=== PATIENT | male | born 1955 | race Caucasian/White ===

== ENCOUNTER → 2017-07-30 | Outpatient (CLI) | payer BC ==
[2017-07-30 21:10] LABS: Basophils % (A) 0 %; CH 32.6; Eosinophils # (A) 0.2 k/uL (0-0.7); Eosinophils % (A) 2 %; HCT 52.6 % (39.0-53.0); HDW 2.71; HGB 17.3 gm/dL (13.0-17.5); Luc % (Auto) 1; Lymphocytes # (A) 1.9 k/uL (1.0-4.8); Lymphocytes % (A) 19 %; MCH 31.7 pg (25.0-35.0); MCHC 32.9 g/dL (31.0-37.0); MCV 96.4 fL (80.0-100.0); Mean Platelet Volume 9.9; Monocytes # (A) 0.6 k/uL (0-1.0); Monocytes % (A) 6 %; Neutrophils # (A) 7.1 k/uL (1.3-7.7); Neutrophils % (A) 72 %; RBC 5.46 m/uL (4.30-5.90); RDW 14.6 % (11.5-15.5); WBC (Perox) 9.57
[2017-07-30 21:12] LABS: ALT 38 U/L (21-72); AST 27 U/L (17-59); Alkaline Phosphatase 63 U/L (38-126); Anion Gap 14 mmol/L; Blood Urea Nitrogen 15 mg/dL (9-20); Calcium 9.8 mg/dL (8.4-10.2); Carbon Dioxide 26 mmol/L (22-30); Chloride 102 mmol/L (98-107); Cholesterol 128 mg/dL (<200); Glucose 146 mg/dL (74-99); HDL Cholesterol 37 mg/dL (40-60); Non-African American GFR(MDRD) >60 (>60 ml/min/1.73 sqM); Potassium 4.1 mmol/L (3.5-5.1); Sodium 142 mmol/L (137-145); Total Bilirubin 0.6 mg/dL (0.2-1.3); Total Protein 7.2 g/dL (6.3-8.2)
[2017-07-31 01:17] LABS: Urine Creatinine 90.9 mg/dL
[2017-07-31 13:51] LABS: Hemoglobin A1C 6.8 % (4.2-6.1)
== END ==
LOC: MMGSC 09:40
PROVIDERS: ATTEND Family Medicine
DX: E78.5 Hyperlipidemia, unspecified (principal); E11.9 Type 2 diabetes mellitus without complications; I10 Essential (primary) hypertension
CPT/HCPCS: 36415; 80053; 80061; 82043; 82570; 83036; 84443; 85025

== ENCOUNTER → 2018-01-17 | Outpatient (CLI) | payer BC ==
[2018-01-17 19:09] LABS: ALT 25 U/L (21-72); AST 23 U/L (17-59); Albumin 4.3 g/dL (3.5-5.0); Alkaline Phosphatase 64 U/L (38-126); Anion Gap 13 mmol/L; Blood Urea Nitrogen 14 mg/dL (9-20); Calcium 9.7 mg/dL (8.4-10.2); Carbon Dioxide 25 mmol/L (22-30); Chloride 105 mmol/L (98-107); Cholesterol 118 mg/dL (<200); Glucose 121 mg/dL (74-99); HDL Cholesterol 38 mg/dL (40-60); LDL Cholesterol,Calculated 35 mg/dL (0-99); Potassium 4.5 mmol/L (3.5-5.1); Sodium 143 mmol/L (137-145); Total Bilirubin 0.3 mg/dL (0.2-1.3); Total Protein 6.8 g/dL (6.3-8.2); Triglycerides 225 mg/dL (<150)
[2018-01-17 19:22] LABS: PSA Annual Screen 6.49 ng/mL (0.00-4.00)
[2018-01-18 04:30] LABS: Hemoglobin A1C 6.7 % (4.0-6.0)
== END | disposition home or self-care (01) ==
LOC: MMGSC 09:43
PROVIDERS: ATTEND Family Medicine
DX: I10 Essential (primary) hypertension (principal); E11.9 Type 2 diabetes mellitus without complications; Z12.5 Encounter for screening for malignant neoplasm of prostate
CPT/HCPCS: 80061; 80053; 83036; 36415; G0103

== ENCOUNTER → 2020-05-16 | Outpatient (CLI) | payer MEDICARE ==
[2020-05-16 08:23] LABS: African American GFR (CKD) >90 (>60 ml/min/1.73 sqM); Blood Urea Nitrogen 16 mg/dL (9-20); Non-African American GFR(CKD) >90 (>60 ml/min/1.73 sqM)
--- NOTE | 2020-05-16 10:42 | CT ---
EXAMINATION TYPE: CT ChestAbdPelvis w con DATE OF EXAM: 05/16/2020 COMPARISON: None HISTORY: 64-year-old male Prostate cancer. Status post prostatectomy and radiation 2 years ago. Follo w-up exam. TECHNIQUE: Contiguous axial scanning of the chest, abdomen, and pelvis performed with IV Contrast, pa tient injected with 100 mL of Isovue 300. Delayed images through the kidneys were obtained. Coronal/s agittal reconstructions performed. CT DLP: 4413.7 mGycm Automated exposure control for dose reduction was used. FINDINGS: CHEST: The heart is normal size without pericardial effusion. Extensive LAD and RCA coronary artery calcific ations are present. Ascending aorta is ectatic at 3.5 cm. Conventional arch vessel branching anatomy. Mildly enlarged 1.4 cm precarinal lymph node shows benign morphology with thin cortex and large fatty hilum, likely reactive. Otherwise, no thoracic lymphadenopathy by CT size criteria. Lungs show no evidence for consolidation or pleural effusion. Strandy atelectasis is present on the l eft. No suspicious pulmonary nodule or mass. ABDOMEN: Liver enlarged measuring 19.3 cm. There is low attenuation of the hepatic parenchyma suggesting fatty infiltration. Portal venous system is patent. No biliary ductal dilatation. Adrenal glands, gallbladder, right kidney, spleen, and pancreas appear within normal limits. Small 1.3 cm diverticulum projecting superiorly from the third portion of the duodenum into the pancr eatic head region. Retroaortic left renal vein. Suspicious solid mass measuring 3.5 cm craniocaudal by 2.7 cm AP by 2.3 cm wide. This is located with in the medial mid to lower pole left kidney just below the renal sinus. RCC until proven otherwise. Mild to moderate atherosclerotic calcifications infrarenal abdominal aorta without aneurysm. No dilated small bowel, free fluid, or free air. Mild to moderate stool in the left side of the colon. Sigmoid diverticulosis. Normal appendix. No per icolonic inflammatory change. Nonspecific mildly enlarged 1.5 cm seema hepatic lymph node, probably reactive/post inflammatory. Mildly enlarged 1.6 cm aortocaval lymph node, axial image 86. Enlarged right common iliac artery lymph node at 3.5 x 2.4 cm, axial image 101. No mesenteric lymphadenopathy. PELVIS: Bladder partially distended. Prostate gland surgically absent. Patulous left internal canal. Low-density mass along the right pelvic sidewall measuring 4.4 x 4.0 cm. This shows attenuation of 10 .6 Hounsfield units, possible lymphocele. Smaller similar area along the left pelvic sidewall measuri ng 2.0 x 1.4 cm. Right-sided pelvic phlebolith. BONES: Mild degenerative change at the hips. Degenerative bridging ankylosis left si joint. Mild degenerativ e change right si joint. Moderate degenerative disc disease midthoracic spine. No definite suspicious sclerotic lesion. We note a bone scan has been ordered which will provide further evaluation. IMPRESSION: 1. STATUS POST PROSTATECTOMY. FINDINGS ARE SUSPICIOUS FOR A METASTATIC RIGHT COMMON ILIAC CHAIN LYMPH NODE MEASURING 3.5 X 2.4 CM. A MILDLY ENLARGED 1.6 CM AORTOCAVAL LYMPH NODE IS NONSPECIFIC. 2. SUSPICIOUS 3.5 X 2.7 CM SOLID MASS MEDIAL MID TO LOWER POLE LEFT KIDNEY. RCC UNTIL PROVEN OTHERWIS E. 3. LOW-DENSITY MASS ALONG THE RIGHT PELVIC SIDEWALL MEASURES 4.4 X 4.0 CM. SMALLER SIMILAR AREA ALONG THE LEFT PELVIC SIDEWALL MEASURING 2.0 X 1.4 CM. LYMPHOCELES ARE SUSPECTED RATHER THAN METASTATIC LY MPH NODES. CORRELATE WITH ANY RECENT OUTSIDE PRIORS. 4. INCIDENTAL: EXTENSIVE LAD AND RCA CORONARY ARTERY CALCIFICATIONS, HEPATIC STEATOSIS, AND SIGMOID D IVERTICULOSIS.
--- NOTE | 2020-05-16 18:09 | NM ---
EXAMINATION TYPE: NM bone scan whole body DATE OF EXAM: 05/16/2020 COMPARISON: CT chest abdomen pelvis 05/16/2020. HISTORY: Prostate cancer Delayed whole-body scanning was performed following the injection of 25.1 mCi Tc 99m MDP. Images acq uired 3.5 hours post injection. FINDINGS: Focal of abnormal activity overlying the region of the superomedial left scapula. Symmetric degenerat precious uptake of the shoulders, sternoclavicular joints, knees, ankles, and feet. IMPRESSION: Focal of abnormal activity over the region of the superomedial left scapula. Retrospectively this fin ding may correlate with a faint area of sclerosis on same day CT. Findings may represent metastatic p rostate cancer.
== END | disposition home or self-care (01) ==
LOC: RADCTMAIN 07:26
PROVIDERS: ATTEND Internal Medicine Hematology & Oncology
DX: C61 Malignant neoplasm of prostate (principal); Z90.79 Acquired absence of other genital organ(s); R93.7 Abnormal findings on diagnostic imaging of other parts of musculoskeletal system
CPT/HCPCS: 82565; 84520; 71260; 74177; 78306; 36415; A9503; Q9967

== ENCOUNTER → 2021-03-18 | Outpatient (CLI) | payer MEDICARE ==
[2021-03-18 09:43] LABS: African American GFR (CKD) >90 (>60 ml/min/1.73 sqM); Blood Urea Nitrogen 12 mg/dL (9-20); Non-African American GFR(CKD) >90 (>60 ml/min/1.73 sqM)
--- NOTE | 2021-03-18 12:21 | CT ---
EXAMINATION TYPE: CT abdomen w con DATE OF EXAM: 03/18/2021 COMPARISON: Most recent CT May 16, 2020 HISTORY: Left renal mass CT DLP: 3716.1 mGycm, Automated Exposure Control for Dose Reduction was Utilized. CONTRAST: CT scan of the abdomen is performed with oral and with IV Contrast, patient injected with 100 mL of I sovue 300. FINDINGS: LUNG BASES: Right Coronary artery calcification and/or stent redemonstrated. Motion artifact degradat ion. LIVER/GB: Liver is diffusely low density consistent with diffuse fatty infiltration. PANCREAS: No significant abnormality is seen. SPLEEN: No significant abnormality is seen. ADRENALS: No significant abnormality is seen. KIDNEYS: Symmetric cortical medullary uptake and excretion without hydronephrosis seen bilaterally. F airly stable heterogeneous partially exophytic roughly 3.5 x 3.0 x 2.5 cm lesion medial portion left kidney. Suspect solid enhancing mass. Redemonstration of a retroaortic left renal vein which is lucinda l variant. No new mass or adjacent adenopathy. BOWEL: Oral contrast does not reach terminal ileum. No suspicious small or large bowel dilatation. LYMPH NODES: No new greater than 1cm abdominal lymph nodes are appreciated. Stable or slightly less prominent subcentimeter aortocaval lymph node axial image 49 on the current study. Improved right com mon iliac chain lymph node axial image 64 noted now subcentimeter in size. OSSEOUS STRUCTURES: Mild multilevel spurring in the visualized spine. OTHER: Mild to moderate calcified plaque of the aorta extends into branch vessels. IMPRESSION: Improved right common iliac chain adenopathy. Stable suspicious partially exophytic 3.5 c m medial lower pole left renal mass worrisome for neoplasm.
== END | disposition home or self-care (01) ==
LOC: RADCTMAIN 08:41
PROVIDERS: ATTEND Internal Medicine Hematology & Oncology
DX: N28.89 Other specified disorders of kidney and ureter (principal); R59.0 Localized enlarged lymph nodes
CPT/HCPCS: 82565; 84520; 74160; 36415; Q9967

== ENCOUNTER → 2021-06-02 | Outpatient (CLI) | payer MEDICARE ==
--- NOTE | 2021-06-02 18:50 | BD ---
EXAMINATION TYPE: Axial Bone Density DATE OF EXAM: 06/02/2021 COMPARISON: NONE CLINICAL HISTORY: 65 YR OLD MALE.....ICD-10 CODE: M85.9 OSTEOPENIA Height: 67.5 Weight: 316 FRAX RISK QUESTIONS: Current Tobacco Use: YES RISK FACTORS HISTORY OF: ANKLE FX AT AGE 45 YRS OLD WITH HARDWARE Family History of Osteoporosis: YES, HER MOTHER WITH HIP REPLACEMENTS Diet low in dairy products/other sources of calcium: YES Lost more than 2 inches in height since high school: YES Hyperparathyroidism: UNSURE, PROBABLY NOT Adrenal Insufficiency: UNSURE, PROBABLY NOT MEDICATIONS: Prednisone or other steroids: SINUS MEDS ONLY, FLONASE Additional Medications: BP MEDS, HX OF RADIATION, REFLUX MEDS, STAIN FOR CHOLESTEROL, CALCIUM, VIT D, METFORMIN, Additional History: HYPERTENSION, PROSTATE CA, REMOVAL, METS TO SHOULDER, REMOVAL, CHOLESTEROL, REFLU X, DIABETES, EXAM MEASUREMENTS: Bone mineral densitometry was performed using the [employer]. Bone mineral density as measured about the Lumbar spine is: ----- L1-L4(G/cm2): 1.202 T Score Values are as follows: ----- L1: 0.2 ----- L2: 0.7 ----- L3: 0.3 ----- L4: -0.4 ----- L1-L4: 0.2 Bone mineral density FIRST DEXA SCAN......BASELINE STUDY Bone mineral density about the R hip (g/cm2): 1.306 Bone mineral density about the L hip (g/cm2): 1.220 T Score values are as follows: -----R Neck: 1.0 -----L Neck: -0.1 -----R Total: 2.4 -----L Total: 1.7 Bone mineral density BASELINE STUDY FRAX%s: THERE IS A 6.4% CHANCE FOR A MAJOR OSTEOPOROTIC FX AND A 0.8% FOR HIP.....PROBABILITY FOR FX IN 10 YRS TIME IMPRESSION: Normal (Values between +1 and -1 indicate normal bone mass). Consider repeating this study in 5 year s or sooner if there is some new clinical indication. NOTE: T-SCORE=SD OF THE YOUNG ADULT MEAN.
== END | disposition home or self-care (01) ==
LOC: RADBDWWP 08:54
PROVIDERS: ATTEND Internal Medicine Hematology & Oncology
DX: M85.9 Disorder of bone density and structure, unspecified (principal)
CPT/HCPCS: 77080

== ENCOUNTER → 2021-12-03 | Outpatient (CLI) | payer MEDICARE ==
[2021-12-03 12:00] LABS: African American GFR (CKD) >90 (>60 ml/min/1.73 sqM); Blood Urea Nitrogen 20 mg/dL (9-20); Non-African American GFR(CKD) >90 (>60 ml/min/1.73 sqM)
--- NOTE | 2021-12-03 14:01 | CT ---
EXAMINATION TYPE: CT ChestAbdPelvis w con DATE OF EXAM: 12/03/2021 COMPARISON: Abdomen 03/18/2021, whole-body 05/16/2020 HISTORY: 66-year-old male C61 Prostate ca, D41.10 renal mass, Z03.89 observation for met TECHNIQUE: Contiguous axial scanning of the chest, abdomen, and pelvis performed with IV Contrast, pa tient injected with 100 mL of Isovue 300. Delayed images through the kidneys were obtained. Coronal/s agittal reconstructions performed. CT DLP: 3768.0 mGycm Automated exposure control for dose reduction was used. FINDINGS: CHEST: Heart normal size without pericardial effusion. Extensive LAD and RCA coronary calcifications are pre sent. Ascending aorta borderline aneurysmal at 4.0 cm, unchanged from 05/16/2020. Prostatic arch calcification. Conventional arch vessel branching anatomy. Scattered nonenlarged and borderline size mediastinal lymph nodes. These measure up to 1.6 cm in the precarinal region, unchanged. 9 mm subcarinal. 8 mm right hilar. Mild bilateral gynecomastia. No enlarging thoracic lymphadenopathy seen. Some strandy atelectasis at the left base and also at the periphery of the left midlung. 5 mm left mid lung pulmonary nodule, axial image 29 not well seen previously. No consolidation or pleural effusion. ABDOMEN: Liver mildly enlarged at 18.7 cm. Mildly diminished attenuation of the liver parenchyma suggesting mi ld fatty infiltration. Portal venous system is patent. No biliary ductal dilatation. Gallbladder, adrenal glands, spleen, pancreas within normal limits. Tiny 6 cm cortical hypodensity right kidney, unchanged suggestive of a cyst. Stable heterogeneously enhancing 3.0 cm mass medial mid to lower pole left kidney. Stable mildly enlarged 1.5 cm seema hepatic lymph node. 1.3 cm aortocaval lymph node, unchanged. Some scattered nonenlarged mesenteric lymph nodes measuring up to 6 mm, axial image 80. 1 cm right common iliac chain lymph node, stable from 03/18/2021 and smaller from 05/16/2020. No enlarging abdominal lymph nodes identified. Retroaortic left renal vein. Mild atherosclerotic calcifications infrarenal abdominal aorta and common iliac arteries. No dilated small bowel, free fluid, or free air. Moderate stool burden. Oral contrast reaches the transverse colon. Sigmoid diverticulosis. Mildly red undant sigmoid colon. No pericolic inflammatory change. PELVIS: Bladder urine distended. The prostate gland is either very small or surgically absent. Redemonstrated right pelvic sidewall seroma measuring 4.5 x 3.5 cm versus 4.4 x 4.0 cm on 05/16/2020. Smaller left pelvic sidewall seroma measuring 2.2 cm versus 3.0 cm, previously. Right-sided pelvic ph lebolith. Patulous left inguinal canal redemonstrated. No pelvic lymphadenopathy seen. BONES: Mild degenerative change of the hips. Degenerative changes left greater than right SI joints. No osse ous destructive process. Mild to moderate degenerative disc disease thoracic spine. IMPRESSION: 1. STABLE TREATED 1 CM RIGHT COMMON ILIAC CHAIN LYMPH NODE. STABLE 1.3 CM AORTOCAVAL LYMPH NODE. NO E NLARGING LYMPHADENOPATHY IDENTIFIED. STABLE PELVIC SIDEWALL SEROMAS MEASURING UP TO 4.5 CM. 2. A 5 MM LEFT MID LUNG PULMONARY NODULE IS NOT WELL SEEN PREVIOUSLY AND MAY BE NEW. THREE-MONTH FOLL OW-UP CT CHEST TO REASSESS. OTHERWISE, NO EVIDENCE FOR METASTATIC DISEASE. 3. STABLE 3.0 CM SOLID ENHANCING LEFT RENAL MASS. ONGOING SURVEILLANCE RECOMMENDED RCC REMAINS IN THE DIFFERENTIAL. 4. CAD WITH EXTENSIVE LAD AND RCA CORONARY ARTERY CALCIFICATIONS, HEPATIC STEATOSIS, MODERATE STOOL B URDEN, AND SIGMOID DIVERTICULOSIS.
== END | disposition home or self-care (01) ==
LOC: RADCTMAIN 10:09
PROVIDERS: ATTEND Internal Medicine Hematology & Oncology
DX: C61 Malignant neoplasm of prostate (principal); D41.10 Neoplasm of uncertain behavior of unspecified renal pelvis; N50.1 Vascular disorders of male genital organs; I25.10 Atherosclerotic heart disease of native coronary artery without angina pectoris; K76.0 Fatty (change of) liver, not elsewhere classified; K57.30 Diverticulosis of large intestine without perforation or abscess without bleeding
CPT/HCPCS: 82565; 84520; 71260; 74177; 36415; Q9967

== ENCOUNTER → 2022-08-17 | Outpatient (CLI) | payer MEDICARE ==
[2022-08-17 08:52] LABS: African American GFR (CKD) >90 (>60 ml/min/1.73 sqM); Blood Urea Nitrogen 13 mg/dL (9-20); Non-African American GFR(CKD) >90 (>60 ml/min/1.73 sqM)
--- NOTE | 2022-08-17 11:28 | CT ---
EXAMINATION TYPE: CT abdomen w con DATE OF EXAM: 08/17/2022 COMPARISON: Most recent CT December 03, 2021 and older studies HISTORY: Renal cyst CT DLP: 3043.90 mGycm Automated exposure control for dose reduction was used. TECHNIQUE: Helical acquisition of images was performed from the lung bases through the top of iliac crest to include entire abdomen. CONTRAST: Performed with Oral Contrast and with IV Contrast, patient injected with 65ml mL of Isovue 300. FINDINGS: LUNG BASES: Right Coronary artery calcification and/or stent is redemonstrated. LIVER/GB: Liver is diffusely low density consistent with mild diffuse fatty infiltration. PANCREAS: No significant abnormality is seen. SPLEEN: No significant abnormality is seen. ADRENALS: No significant abnormality is seen. KIDNEYS: Symmetric cortical medullary uptake and excretion without hydronephrosis seen bilaterally. F airly stable heterogeneous partially exophytic roughly 3.5 x 3.0 x 3.0 cm lesion medial portion left kidney. Suspect solid enhancing mass. Redemonstration of a retroaortic left renal vein which is lucinda l variant. No new mass or adjacent adenopathy. BOWEL: Oral contrast does not reach colonic level. No suspicious small or large bowel dilatation. LYMPH NODES: No new greater than 1cm abdominal lymph nodes are appreciated. Stable near 1.0 cm aorto caval lymph node axial image 51 on the current study. Stable measuring 1.0 cm right common iliac flynn n lymph node axial image 66 current study from most recent CT. No new greater than 1 cm abdominal yadira nopathy. OSSEOUS STRUCTURES: Mild multilevel spurring in the visualized spine. OTHER: Mild to moderate calcified plaque of the aorta extends into branch vessels. IMPRESSION: Stable suspicious partially exophytic 3.5 cm medial lower pole left renal mass worrisome for neoplasm. Stable prominent abdominal lymph nodes. No new or enlarging mass or adenopathy identifi ed.
== END | disposition home or self-care (01) ==
LOC: RADCTMAIN 08:15
PROVIDERS: ATTEND Internal Medicine Hematology & Oncology
DX: C61 Malignant neoplasm of prostate (principal)
CPT/HCPCS: 82565; 84520; 74160; 36415; Q9967

== ENCOUNTER → 2023-08-20 | Outpatient (CLI) | payer MEDICARE ==
[2023-08-20 15:37] LABS: African American GFR (CKD) >90 (>60 ml/min/1.73 sqM); Blood Urea Nitrogen 13 mg/dL (9-20); Non-African American GFR(CKD) >90 (>60 ml/min/1.73 sqM)
--- NOTE | 2023-08-21 17:12 | CT ---
EXAMINATION TYPE: CT abdomen pelvis w con DATE OF EXAM: 08/20/2023 COMPARISON: 08/17/2022, 12/03/2021 INDICATION: Prostate CA follow up on kidney spot DLP: 2767 mGycm, Automated exposure control for dose reduction was used. CONTRAST: 100mL mL of Isovue 300. Study performed with Oral Contrast TECHNIQUE: Axial images were obtained from above the diaphragm to the pubic rami in the axial plane a t 5 mm thick sections. Reconstructed images are reviewed on the computer in the coronal plane. FINDINGS: Limited CT sections are obtained the lung bases. The lung bases are clear. *Calcifications within c oronary vessels. CT ABDOMEN: Liver: There is mild to moderate fatty infiltration to the liver. No discrete masses are evident. Spleen: Normal Pancreas: Mildly atrophic Adrenal glands: The adrenal glands are normal. Gallbladder: Normal Kidneys: There is an isodense mass measuring 2.9 x 3.5 cm on the medial mid to inferior pole right ki dney. Previous measurement 2.8 x 3.0 cm. On the postcontrast delayed images this measures 3.8 x 3.4 c m. Measured at the comparable level on the prior study this measures 3.8 x 3.2 cm. No hydronephrosis is present. No cysts are present. Aorta: Vascular calcification is within the aorta. Inferior vena cava: Normal. CT PELVIS: Loops of bowel within the abdomen and pelvis are normal. There are loops of bowel which are incom pletely distended or lack oral contrast limiting their evaluation. Fecal debris is within the colon. Appendix: Normal as visualized. Urinary bladder: Normal. Genitourinary structures: Prostate is not identified. Small cystocele appears to be present. Osseous structures: No suspicious lytic or sclerotic lesions. Within the right hemipelvis is a 4.5 x 4.1 cm hypodense area. This is in the proximal right iliac valentine in may be a lymphocele. This was out of the [id number] on the prior examination. Previous measurem ent December 2021 is 4.5 x 3.5 cm. IMPRESSION: 1. Subtle enlargement of a medial mid to inferior pole left renal mass. 2. Some minimal enlargement of a suspected lymph node in the right iliac chain is present. 3. Mild to moderate fatty infiltration of the liver remains present. 4. Diverticulosis without acute diverticulitis.
== END | disposition home or self-care (01) ==
LOC: RADCTMAIN 14:33
PROVIDERS: ATTEND Internal Medicine Hematology & Oncology
DX: C61 Malignant neoplasm of prostate (principal); D41.10 Neoplasm of uncertain behavior of unspecified renal pelvis; R35.1 Nocturia; R59.0 Localized enlarged lymph nodes; K76.0 Fatty (change of) liver, not elsewhere classified; K57.90 Diverticulosis of intestine, part unspecified, without perforation or abscess without bleeding; Z71.3 Dietary counseling and surveillance
CPT/HCPCS: 82565; 84520; 74177; 36415; Q9967

== ENCOUNTER 2023-10-19 07:12 | Day surgery (SDC) | payer MEDICARE ==
[~2023-10-19 07:12] MED LIST: LACTATED RINGERS 1,000 ML IV SCH; LIDOCAINE 1% (10MG/ML) FOR IV START INTRADERMA PRN
[2023-10-19] MEDS ORDERED: LACTATED RINGERS 1,000 ML IV ONE (07:28)
[2023-10-19 07:53] VITALS: RESP 16; TEMP 97.4
[2023-10-19 07:57] LABS: Glucose,Whole Blood 211 mg/dL (70-110)
[2023-10-19] MEDS ORDERED: PROPOFOL 10 MG/ML 20 ML VIAL IV ONE (08:30)
[2023-10-19] MEDS ORDERED: LIDOCAINE 1% INJ 10MG/ML (20 ML MDV) ONE (08:30)
--- NOTE | 2023-10-19 08:52 | P.PCN ---
Date of Procedure: 10/19/23 Procedure(s) Performed: BRIEF HISTORY: Patient is a 68-year-old pleasant white male male scheduled for an elective colonoscopy as a part of value should prior history of colon polyps. His last colonoscopy was 5 years ago. PROCEDURE PERFORMED: Colonoscopy. PREOPERATIVE DIAGNOSIS: History of colon polyps. IV sedation per Anesthesia. PROCEDURE: After informed consent was obtained, the patient, was brought into the endoscopy unit. IV sedation was administered by Anesthesia under continuous monitoring. Digital rectal examination was normal. Initially the Olympus CF-160 flexible video colonoscope was then inserted in the rectum, gradually advanced into the cecum without any difficulty. Careful examination was performed as the scope was gradually being withdrawn. Ileocecal valve and the appendiceal orifice were visualized and appeared normal. Prep was fair.. Mucosa of the cecum, ascending colon, transverse colon, descending colon, sigmoid colon, and rectum appeared normal. At her sigmoid diverticulosis. Retroflexion was performed in the rectum and no lesions were seen. The patient tolerated the procedure well. IMPRESSION: Normal-appearing colon from rectum to cecum with no evidence of colorectal neoplasia Scattered sigmoid diverticulosis. . RECOMMENDATIONS: Findings of this examination were discussed with the patient as well as his family. He was advised to have a repeat colonoscopy in 5 years from now because of the prior history of colon polyps.
[2023-10-19 09:35] VITALS: BP 152/77; PULSE 82
== END 2023-10-19 09:28 | disposition home or self-care (01) ==
LOC: ORWHC2ENDO 07:12
PROVIDERS: ATTEND Internal Medicine Gastroenterology
DX: Z12.11 Encounter for screening for malignant neoplasm of colon (principal); K57.30 Diverticulosis of large intestine without perforation or abscess without bleeding; I10 Essential (primary) hypertension; E78.5 Hyperlipidemia, unspecified; E11.9 Type 2 diabetes mellitus without complications; F17.210 Nicotine dependence, cigarettes, uncomplicated; Z86.010 Personal history of colon polyps; Z85.46 Personal history of malignant neoplasm of prostate; Z79.84 Long term (current) use of oral hypoglycemic drugs; Z79.899 Other long term (current) drug therapy
CPT/HCPCS: 45378; J2001; J2704

== ENCOUNTER → 2023-12-20 | Outpatient (CLI) | payer MEDICARE ==
--- NOTE | 2023-12-20 17:39 | BD ---
EXAMINATION TYPE: Axial Bone Density DATE OF EXAM: 12/20/2023 CLINICAL HISTORY: 68 years old Male. ICD-10 CODE: M85.9 DISORDER OF BONE DENSITY AND STRUCTURE, UNSP Height: 67.5 in Weight: 312 lbs FRAX RISK QUESTIONS: Hx of fx as adult: rt ankle fx age 48 Current Tobacco Use: yes RISK FACTORS EXAM MEASUREMENTS: Bone mineral densitometry was performed using the [email or web address] System. Bone mineral density as measured about the Lumbar spine is: ----- L1-L4(G/cm2): 1.193 T Score Values are as follows: ----- L1: -0.1 ----- L2: 0.9 ----- L3: 0.9 ----- L4: -1.2 ----- L1-L4: 0.1 Z Score Values are as follows: ----- L1: -0.6 ----- L2: 0.3 ----- L3: 0.4 ----- L4: -1.8 ----- L1-L4: -0.4 Bone mineral density has: Decreased -0.7% since study of: 06/02/2021 Bone mineral density about the R hip (g/cm2): 1.184 Bone mineral density about the L hip (g/cm2): 1.087 T Score values are as follows: -----R Neck: 0.7 -----L Neck: -0.9 -----R Total: 1.4 -----L Total: 0.6 Z Score values are as follows: -----R Neck: 1.3 -----L Neck: -0.4 -----R Total: 0.8 -----L Total: 0.2 Bone mineral density has: Decreased -10.1% since study of: 06/02/2021 FRAX%s: The graph provided illustrates a 7.4% chance for a major osteoporotic fx and a 1.8% chance fo r the hips probability for fx in 10 years time. IMPRESSION: Normal (Values between +1 and -1 indicate normal bone mass). Consider repeating this study in 5 year s or sooner if there is some new clinical indication. NOTE: T-SCORE=SD OF THE YOUNG ADULT MEAN.
== END | disposition home or self-care (01) ==
LOC: RADBDWWP 11:09
PROVIDERS: ATTEND Internal Medicine Hematology & Oncology
DX: M85.9 Disorder of bone density and structure, unspecified (principal); D41.10 Neoplasm of uncertain behavior of unspecified renal pelvis; C61 Malignant neoplasm of prostate; R35.1 Nocturia; Z71.3 Dietary counseling and surveillance
CPT/HCPCS: 77080